=== PATIENT | female | born 1940 | race Caucasian/White ===

== ENCOUNTER 2022-04-09 07:48 | Day surgery (SDC) | payer MEDICARE, SELFPAY ==
[2022-04-09] MEDS: TETRACAINE 0.5% OPHTH 1 DROP EYE-RIGHT ×2 (08:06→08:10)
[2022-04-09] MEDS: KETOROLAC OPHTH 0.5% 1 DROP EYE-RIGHT ×2 (08:07→08:11)
[2022-04-09] MEDS: SODIUM CHLORIDE 0.9 % (FLUSH) 10 ML SYRINGE IVF (08:15)
[2022-04-09 08:18] VITALS: BP 155/79; PULSE 83; RESP 18; TEMP 36.6; O2SAT 99; BMI 34.1
--- NOTE | 2022-04-09 08:22 | SUR.PREOP ---
The eye drops brought by the patient (Ketorolac and Prednisolone) are examined and I have determined they are labeled by the patient's pharmacy for this patient as prescribed by the surgeon. The bottles are intact, recently obtained and appear to be correct.
[2022-04-09] MEDS: TETRACAINE 0.5% OPHTH 2 DROP EYE-RIGHT (09:23)
[2022-04-09] MEDS: BALANCED SALT IRRIG SOLN 15 ML EYE-RIGHT (09:27)
--- NOTE | 2022-04-09 09:32 | W.ANESCHARGE ---
Anesthesia Charges Start Date/Time Anesthesia Start Date: 04/09/22 Anesthesia Start Time: 09:21 Stop Date/Time Anesthesia Stop Date: 04/09/22 Anesthesia Stop Time: 09:55 Summary Emergency: No Extremes of Age: Over 72-CPT 57476
[2022-04-09 09:52] VITALS: BP 171/82; PULSE 64; RESP 18; TEMP 36.5; O2SAT 96
--- NOTE | 2022-04-09 10:08 | SUR.PHASEII ---
The eye drops brought by the patient (Ketorolac and Prednisolone and Ofloxacin) are examined and I have determined they are labeled by the patient's pharmacy for this patient as prescribed by the surgeon. The bottles are intact, recently obtained and appear to be correct.
--- NOTE | 2022-04-09 11:17 | W.PM.OPTPROC ---
Procedure Note Date of procedure: 04/09/22 Will [facility] bill your pro fee for this procedure?: Yes Procedure Description: SURGEON: Donna Salter MD PREOPERATIVE DIAGNOSIS: Nuclear sclerotic cataract, right eye. POSTOPERATIVE DIAGNOSIS: Nuclear sclerotic cataract, right eye. NAME OF OPERATION: Phacoemulsification of cataract with posterior chamber intraocular lens implantation in the right eye. ANESTHESIA: Topical. ESTIMATED BLOOD LOSS: Less than 2 cc. COMPLICATIONS: None. PATHOLOGY SPECIMEN: None. INDICATIONS: See consult note for details. The risks, benefits and alternatives of the procedure were explained to the patient, who elected to proceed and signed informed consent to do so. PROCEDURE: The patient was brought to the pre-holding area where the right eye was identified as the operative eye. I placed my initials above this eye. The patient received eye drops consisting of 0.5% tetracaine, 1% tropicamide, 10% phenylephrine, and 0.5% ketorolac. The patient was then brought to the operating room where the right eye was again identified as the operative eye. The eye was prepped with Betadine and draped in the usual sterile ophthalmic fashion. A #15 super-sharp blade was used to create a paracentesis site. 1% non-preserved intracameral lidocaine was injected into the anterior chamber. Endocoat was injected into the anterior chamber. A 2.4 mm keratome was used to create a three-plane self-sealing incision 1 mm anterior to the temporal limbus. A cystotome was used to create an anterior capsular leaflet. The Utrata forceps were used to extend this to form a continuous curvilinear capsulorrhexis. Hydrodissection was performed. The cataract was removed with phacoemulsification using the oevuew-cev-[id number] technique. The irrigation and aspiration tip was used to remove the remaining cortex. Healon was injected into the capsular bag. An WOODROW ZCB00 intraocular lens of 23.5 diopters was injected into the capsular bag. The irrigation and aspiration tip was used to remove the remaining viscoelastic. Balanced salt solution on a cannula was used to hydrate the wound, and the wound was found to be watertight. The pupil was noted to be round. DISPOSITION: The patient was taken to the recovery room and discharged to home in stable condition. The patient was instructed to call me or go to the emergency department with any sudden change, including dramatic loss of vision, severe pain in the eye or eyebrow region, nausea, or vomiting. The patient will follow up in the clinic tomorrow morning. Surgeon: Donna Salter MD
== END 2022-04-09 10:19 | disposition home or self-care (01) ==
PROVIDERS: PCP Physician Assistant Medical; Visit Provider Ophthalmology
PROC: (CPT 66984; principal; 2022-04-09 08:15)
DX: H25.11 Age-related nuclear cataract, right eye (principal)
CPT/HCPCS: 66984; 00142; 99100; A9270; J2250; J3010; V2632

== ENCOUNTER 2022-04-23 06:09 | Day surgery (SDC) | payer MEDICARE, SELFPAY ==
[2022-04-23] MEDS: KETOROLAC OPHTH 0.5% 1 DROP EYE-LEFT ×2 (06:19→06:40)
[2022-04-23] MEDS: TETRACAINE 0.5% OPHTH 1 DROP EYE-LEFT ×2 (06:19→06:40)
[2022-04-23] MEDS: SODIUM CHLORIDE 0.9 % (FLUSH) 10 ML SYRINGE IVF (06:30)
[2022-04-23 06:39] VITALS: BMI 34.1
[2022-04-23 06:41] VITALS: BP 136/78; PULSE 72; RESP 16; TEMP 36.7; O2SAT 98
--- NOTE | 2022-04-23 06:47 | SUR.PREOP ---
Patient provided home covid negative results to RN.
--- NOTE | 2022-04-23 06:48 | SUR.PREOP ---
The eye drops brought by the patient (Ketorolac, Ofloxacin, and Prednisolone) are examined and I have determined they are labeled by the patient's pharmacy for this patient as prescribed by the surgeon. The bottles are intact, recently obtained and appear to be correct.
[2022-04-23] MEDS: TETRACAINE 0.5% OPHTH 2 DROP EYE-LEFT (07:11)
[2022-04-23] MEDS: BALANCED SALT IRRIG SOLN 15 ML EYE-LEFT (07:16)
--- NOTE | 2022-04-23 07:41 | W.ANESCHARGE ---
Anesthesia Charges Start Date/Time Anesthesia Start Date: 04/23/22 Anesthesia Start Time: 07:08 Stop Date/Time Anesthesia Stop Date: 04/23/22 Anesthesia Stop Time: 07:41 Summary Emergency: No
[2022-04-23 07:51] VITALS: BP 131/74; PULSE 59; RESP 16; TEMP 36.6; O2SAT 97
--- NOTE | 2022-04-23 08:17 | W.ANESCHARGE ---
Anesthesia Charges Start Date/Time Anesthesia Start Date: 04/23/22 Anesthesia Start Time: 07:08 Stop Date/Time Anesthesia Stop Date: 04/23/22 Anesthesia Stop Time: 07:41 Summary Emergency: No Extremes of Age: Over 72-CPT 87150
--- NOTE | 2022-04-23 09:16 | P.OPTPRC_ITS ---
Procedure Note Date of procedure: 04/23/22 Will [facility] bill your pro fee for this procedure?: Yes Procedure Description: SURGEON: Donna Salter MD PREOPERATIVE DIAGNOSIS: Nuclear sclerotic cataract, left eye. POSTOPERATIVE DIAGNOSIS: Nuclear sclerotic cataract, left eye. NAME OF OPERATION: Phacoemulsification of cataract with posterior chamber intraocular lens implantation in the left eye. ANESTHESIA: Topical. ESTIMATED BLOOD LOSS: Less than 2 cc. COMPLICATIONS: None. PATHOLOGY SPECIMEN: None. INDICATIONS: See consult note for details. The risks, benefits and alternatives of the procedure were explained to the patient, who elected to proceed and sign ed informed consent to do so. PROCEDURE: The patient was brought to the pre-holding area where the left eye was identified as the operative eye. I placed my initials above this eye. The patient received eye drops consisting of 0.5% tetracaine, 1% tropicamide, 10% phenylephrine, and 0.5% ketorolac. The patient was then brought to the operating room where the left eye was again identified as the operative eye. The eye was prepped with Betadine and draped in the usual sterile ophthalmic fashion. A #15 super-sharp blade was used to create a paracentesis site. 1% non-preserved intracameral lidocaine was injected into the anterior chamber. Endocoat was injected into the anterior chamber. A 2.4 mm keratome was used to create a three-plane self-sealing incision 1 mm anterior to the temporal limbus. A cystotome was used to create an anterior capsular leaflet. The Utrata forceps were used to extend this to form a continuous curvilinear capsulorrhexis. Hydrodissection was performed. The cataract was removed with phacoemulsification using the zlzexa-mvp-sqsljze technique. The irrigation and aspiration tip was used to remove the remaining cortex. Healon was injected into the capsular bag. An WOODROW ZCB00 intraocular lens of 23.5 diopters was injected into the capsular bag. The irrigation and aspiration tip was used to remove the remaining viscoelastic. Balanced salt solution on a cannula was used to hydrate the wound, and the wound was found to be watertight. The pupil was noted to be round. DISPOSITION: The patient was taken to the recovery room and discharged to home in stable condition. The patient was instructed to call me or go to the emergency department with any sudden change, including dramatic loss of vision, severe pain in the eye or eyebrow region, nausea, or vomiting. The patient will follow up in the clinic tomorrow morning. Surgeon: Donna Salter MD
== END 2022-04-23 08:02 | disposition home or self-care (01) ==
PROVIDERS: PCP Physician Assistant Medical; Visit Provider Ophthalmology
PROC: (CPT 66984; principal; 2022-04-23 06:15)
DX: H25.12 Age-related nuclear cataract, left eye (principal)
CPT/HCPCS: 66984; 00142; 99100; A9270; J2250; J3010; V2632

== ENCOUNTER 2023-02-19 05:49 | Emergency (ER) | payer MEDICARE, SELFPAY ==
--- NOTE | 2023-02-19 05:51 | ED_ITS ---
HPI - General Adult General Time Seen by Provider: 05:51 Date Seen: 02/19/23 Chief complaint: Sore Throat Stated complaint: sore throat Time Seen by Provider: 02/19/23 05:56 Source: patient, RN notes reviewed and old records reviewed Mode of arrival: ambulatory Limitations: no limitations History of Present Illness HPI narrative: 82y/o female with history of hypertension, presents with sore throat, cough, runny nose since yesterday. No chest pain, shortness of breath, fevers, nausea, vomiting. Symptoms started yesterday, she is not taking anything. Called [facility] to make an appointment and was told to come to the emergency department. Related Data Home Medications Medication Instructions Recorded Confirmed alendronate 70 mg tablet 70 mg PO QWEEK 04/08/22 02/19/23 simvastatin 20 mg tablet 20 mg PO HS 04/08/22 02/19/23 triamterene 37.5 1 tab PO DAILY 04/08/22 02/19/23 mg-hydrochlorothiazide 25 mg tablet Previous Rx's Medication Instructions Recorded nirmatrelvir 300 mg (150 mg See Rx Instructions PO .COMPLEX 02/19/23 x2)-ritonavir 100 mg tablet,dose #30 ea pack (Paxlovid) Allergies Allergy/AdvReac Type Severity Reaction Status Date / Time No Known Drug Allergies Allergy Verified 02/19/23 05:56 [facility] Medical History (Updated 02/19/23 @ 07:08 by Darek Ibanez MD) Essential hypertension ?I10 - Essential (primary) hypertension (ICD-10) Hyperlipemia ?E78.5 - Hyperlipidemia, unspecified (ICD-10) Osteopenia ?M85.80 - Other specified disorders of bone density and structure, unspecified site (ICD-10) Surgical History S/P [place]-BSO ?Z90.710 - Acquired absence of both cervix and uterus (ICD-10) ?Z90.722 - Acquired absence of ovaries, 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) ?Z90.79 - Acquired absence of other genital organ(s) (ICD-10) History of appendectomy ?Z90.49 - Acquired absence of other specified parts of digestive tract (ICD- 10) Social History Smoking Status: Never smoker Do you use any of these nicotine containing products: None How often do you have a drink containing alcohol: monthly or less AUDIT-C Alcohol total score: 1 Non-prescribed substance use: denies use Caffeine: Yes Are you using contraception or practicing any form of control: No Exam Narrative: Exam Narrative: General: Well-developed and well-nourished, no acute distress Head: Atraumatic and normocephalic Eyes: Pupils are equal reactive, extraocular motions intact, conjunctiva clear ENT: External nose and ears are normal, posterior pharynx without erythema or exudate Neck: No midline cervical tenderness, full spontaneous range of motion the neck, trachea midline, no adenopathy Heart: Regular rate and rhythm no murmurs or thrills Lungs: Clear to auscultation bilaterally without wheezes or crackles Abdomen: Soft, nontender, nondistended with active bowel sounds Musculoskeletal: No tenderness, deformity, or edema Neurologic: Awake, alert, and oriented x3, no gross focal neurologic deficits, cranial nerves intact as tested Psych: Mood and affect are appropriate Skin: No rashes Const: Vital Signs, click to edit/add: Vital Signs - 24 hr 02/19/23 05:54 Temperature 98.4 F Pulse Rate [Right Pulse Oximeter] 89 Respiratory Rate 18 Blood Pressure [Ri ght Upper Arm] 145/79 H Pulse Oximetry 97 Oxygen Delivery Me thod Room Air Course Course ED Course: Patient seen and examined, prior records reviewed. Patient presents today with upper respiratory symptoms started yesterday, no fever, no chest pain, no breathing difficulty. Posterior pharynx without erythema x-ray, patient's vital is stable. COVID and strep test are ordered. Reevaluation(s) Time of Reevaluation #1: 07:06 Reevaluation #1: COVID positive. Patient is at high risk of progression due to comorbidities and age. Discussed risks and benefits of antivirals and patient will be started on Paxlovid Vital Signs Vital signs: Initial Vital Signs Respiratory Effort Normal, Spontaneous, Non-Labored 02/19/23 05:50 Respiratory Depth Normal 02/19/23 05:50 Respiratory Pattern Normal 02/19/23 05:50 Vital Signs Temperature 98.4 F 02/19/23 05:54 Pulse Rate 89 02/19/23 05:54 Respiratory Rate 18 02/19/23 05:54 Blood Pressure 145/79 H 02/19/23 05:54 Pulse Oximetry 97 02/19/23 05:54 Oxygen Delivery Method Room Air 02/19/23 05:54 Temperature 98.4 F 02/19/23 05:54 Pulse Rate 89 02/19/23 05:54 Respiratory Rate 18 02/19/23 05:54 Blood Pressure 145/79 H 02/19/23 05:54 Pulse Oximetry 97 02/19/23 05:54 Oxygen Delivery Method Room Air 02/19/23 05:54 Medical Decision Making Lab Data Labs: Lab Results 02/19/23 Range/Units 06:05 SARS-CoV-2 (PCR) POSITIVE SARS-CoV-2 A (Negative) Influenza Type A (PCR) Negative PCR FLU A (Negative) Influenza Type B (PCR) Negative PCR FLU B (Negative) Group A Strep DNA NOT DETECTED (Not Detectd) Discharge Plan Discharge Clinical Impression: COVID-19 Patient Disposition: Home, Self-Care Condition: Stable Instructions: COVID-19 (Coronavirus Disease 2019) (ED) Additional Instructions: Stop taking your cholesterol medicine (simvastatin) while your taking the antiviral for COVID Discharge Diet: Regular Prescriptions: New Paxlovid 300 mg (150 mg x 2)-100 mg tablets,dose pack See Rx Instructions .ROUTE .COMPLEX Qty: 30 0RF Rx Instructions: take TWO 150 mg tablets of nirmatrelvir with ONE 100 mg tablet of ritonavir twice daily for 5 days No Action alendronate 70 mg tablet 70 mg PO QWEEK Patient Comments: TAKE 1 TABLET BY MOUTH ONCE A WEEK IN THE MORNING. TAKE ON EMPTY STOMACH WITH FULL GLASS OF WATER. DO NOT LIE DOWN FOR 1 HOUR. simvastatin 20 mg tablet 20 mg PO HS Patient Comments: TAKE 1 TABLET BY MOUTH AT BEDTIME. triamterene-hydrochlorothiazid 37.5-25 mg tablet 1 tab PO DAILY Patient Comments: TAKE 1 TABLET BY MOUTH EVERY MORNING. Follow Up/Referrals: Cristina Eduardo PA-C [Primary Care Provider] - Stand Alone [facility] Info Inst[facility]
[2023-02-19 05:54] VITALS: BP 145/79; PULSE 89; RESP 18; TEMP 36.9; O2SAT 97; BMI 32.1
[2023-02-19 06:41] LABS: Strep A DNA Probe* NOT DETECTED (Not Detectd)
[2023-02-19 06:50] LABS: PCR FLU A Negative PCR FLU A (Negative); PCR FLU B Negative PCR FLU B (Negative)
[2023-02-19 06:56] LABS: SARS PCR* POSITIVE SARS-CoV-2 (Negative)
== END 2023-02-19 07:24 | disposition home or self-care (01) ==
PROVIDERS: Emergency Provider Family Medicine; PCP Physician Assistant Medical
DX: U07.1 COVID-19 (principal)
CPT/HCPCS: 87631; 87651; 99282; 99283

== ENCOUNTER 2024-11-08 05:49 | Emergency (ER) | payer MEDICARE, SELFPAY ==
--- OUTSIDE RECORDS SUMMARY | 2024-11-08 05:51 | XMS_ITS | Clinical Summary ---
Author Organization [facility] Address [address] [place] [id number] Care Team Providers Care Fuel Retrofitting Technician Name Role Phone Cristina Eduardo Primary Care Provider Allergies No known active allergies Medications cholecalciferol (VITAMIN D-3) 2,000 unit capsule Take 2 capsules by mouth once daily. 0 7 Active calcium carbonate (OS-HOMERO 500) 500 mg calcium (1,250 mg) tablet Take 2 Tablets by mouth once daily. Active nystatin powder (Nystop) powderIndications: Fungal infection of skin Apply topically to affected area(s) 3 times daily if needed (infection). 60 g 3 4 Active simvastatin 20 mg tabletIndications: Mixed hyperlipidemia Take 1 Tablet (20 mg) by mouth at bedtime. 90 Tablet 3 5 Active triamterene-hydroc hlorothiazide (37.5-25 mg) 37.5-25 mg tabletIndications: Essential hypertension Take 1 Tablet by mouth once daily in the morning. 90 Tablet 3 5 Active fluticasone (50 mcg per actuation) nasal solution (FLONASE)Indicatio ns:Nasal congestion Inhale 2 Sprays in both nostrils once daily. 16 g 5 Active cephalexin 500 mg capsuleIndications :Cellulitis of skin,Arthralgia, unspecified joint Take 1 Capsule (500 mg) by mouth two times daily for 10 days. 20 Capsule 5 11/15/19 25 Active Active Problems Problem Noted Date Diagnosed Date Routine adult health maintenance 01/08/2017 Overview (01/08/2017): Colonoscopy 01/2017 large sigmoid lipoma, recommend surgical excision Osteopenia 03/24/2012 Mixed hyperlipidemia 02/04/2010 MIld Osteoarthritis of Knee 02/16/2009 Unspecified essential hypertension 06/14/2007 Resolved Problems Problem Noted Date Diagnosed Date Resolved Date Severe obesity (BMI 35.0-39. 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/2012 Overview (08/11/2012): Right hand, ring finger Bunion 08/11/2012 07/01/2023 Overview (08/11/2012): Both feet Vitamin D deficiency 01/23/2009 024 Unspecified asthma(493.90) 06/25/2007 1 04/28/2010 Symptomatic menopausal or fe male climacteric states 06/15/2007 07/01/2023 Other atopic dermatitis and related conditions 06/14/2007 07/01/2023 Encounters Date Type Department Care Team Description 11/08/2024 Nurse Triage [facility] [address] [place] [address] Cristina Eduardo PA Hand Pain/problem (Cellulitis follow-up call - R thumb and L index finger ) 11/07/2024 10:10 AM CDT Office Visit [facility] [address] [place] [address] Cristina Eduardo PA Follow Up (Hand is much better but not gone) 11/07/2024 Travel 11/04/2024 3:00 PM CDT Office Visit [facility] [address] [place] [address] Cristina Eduardo PA Hand Pain/problem (R hand cramps up / started last evening. Happened a year ago also) 11/04/2024 Travel 08/22/2024 Telephone [facility] [address] [place] [address] Cristina Vazquez PA Questions (Mammogram necessary?) from Last 3 Months Immunizations Immunization Administration Dates Next Due AMB INFLUENZA IIV3 (AGE 65+ YRS) PF (Flu Clinic Only) 02/01/2018,12/19/2016 Amb Influenza, Inact (High-d ose) (Flu Clinic Only) 01/02/2014 Amb Influenza, Inactivated A IIV4 (Age 65+ Years) Preserv Free 12/20/2019 COVID-19 vaccine (FarmLink NTech 30mcg/0.3mL) PF, MDV 06/05/2020,05/15/2020 Hepatitis A (Adult) 04/25/2004 Inactivated Polio Vaccine 04/25/2004 Influenza, High-dose Inactivated 01/09/2015,12/06 Influenza, High-dose Quadriv alent Inactivated 01/20/2022,01/17/2021 Influenza, IIV3 (Age 6-35 mos) 02/26/2011,2009 Influenza, IIV3 (Age >=3 years) 01/15/20 13,01/16/2012,02/26/2011,01/28,05/01/2009,01/24/2008,03/24/2007 ,04/02/2006,03/09/2003 Influenza, IIV4 12/26/2015 Influenza, Inactivated IIV3 (Age 65+ Years) Preserv Free 12/24/2018 Meningococcal Vaccine 04/25/2004 Meningococcal Vaccine (Menomune) 04/25/2004 Pneumococcal Poly,23-Valent (Pneumovax) 02/26/2011 Pneumococcal conj 13-Valent (Prevnar 13) 04/12/2015 RSV, Recombinant ADJ Reconst ituted (Arexvy 120MCG/0.5mL) 03/13/2023 Td (Age >=7 Years) 11/24/1995 Tdap 01/24/2008 Typhoid (oral) 04/25/2004 Yellow Fever 04/25/2004 Zoster (Zostavax-ZVL, live) 04/02/2006 Family History Medical History Relation Name Comments Heart Disease Father CHF Hypertension Father Other Father dementia Cancer-breast Mother in her 80's wi th recurrance at 90 Cancer-ovarian No Family History Relation Name Status Comments Father (Age 93) natural ca uses Mother Social History Tobacco Use Types Packs/Day Years Used Date Smoking Tobacco: Never Smokeless Tobacco: Never Tobacco Cessation:Counseling Given: Yes Alcohol Use Standard Drinks/Week Comments No 0 (1 standard drink = 0.6 oz pur e alcohol) moderate PHQ-2 Answer Date Recorded PHQ-2 TOTAL SCORE 1 07/11/2024 Social Connections Answer Date Recorded Do you often feel lonely or isolated from those around you? 0 07/11/2024 Financial Resource Strain Answer Date R ecorded Difficulty of Paying Living Expenses 3 07/11/2024 Difficulty of Paying Living Expenses Not on file 07/11/2024 Food Insecurity Answer Date Recorded Do you worry your food will run out before you are able to buy more? 1 07/11/2024 Transportation Needs Answer Date Record ed Does lack of transportation keep you from medica l appointments? 1 07/11/2024 Does lack of transportation keep you from work, meetings or getting things that you need? 1 07/11/2024 Housing Stability Answer Date Recorded What is your housing situation today? 1 07/11/2024 Utilities Answer Date Recorded Do you have trouble paying f or utilities (for example, heat, electricity, water, phone)? 1 07/11/2024 Comments No Sex and Gender Information Value Date Recorded Sex Assigned at Not on file Legal Sex Female 5:25 AM CLINIC CLERK Gender Identity Not on file Sexual Orientation Not on file Obstetrics History Para Term AB IAB SAB Ectopic Multiple Livin g Live Births 0 0 0 0 0 0 0 0 0 0 Last Filed Vital Signs Vital Sign Reading Time Taken Comments Blood Pressure 129/83 11/07/2024 10:04 AM CDT Pulse 83 11/07/2024 10:04 AM CDT Temperature 36.2 C (97.1 F) 08/02/2024 8:05 AM CDT Respiratory Rate 16 04/23/2015 3:39 PM CLINIC CLERK Oxygen Saturation 95% 11/07/2024 10:04 AM CDT Inhaled Oxygen Concentration - - Weight 91.2 kg (201 lb) 11/04/2024 3:22 PM CDT Height 169.7 cm (5' 6.81) 07/11/2024 8:27 AM CD T Body Mass Index 31.66 07/11/2024 8:27 AM CDT Plan of Treatment Health Maintenance Due Date Last Done Comments Zoster (shingles) series for age 50+ (2 of 3) 05/28/2006 04/02/2006 Tetanus booster 01/23/2018 01/24/2008, 11/24/1995 COVID-19 vaccine series ( season) 2024 12/29/2023, 04/21/2023, 01/20/2022, Additional history exists Influenza Vaccine (#1) 2024 , 12/24/2018, 02/01/2018, Additional history exists BMI (ht and wt on same day) for age 18+ 07/11/2025 07/11/2024, 07/01/2023, 06/30/2022, Additional history exists Depression screening for age 12+ 07/11/2025 07/11/2024, 07/01/2023, 06/30/2022, Additional history exists Medicare Wellness for age 65+ 07/12/2025 07/11/2024, 07/01/2023, 06/30/2022, Additional history exists Pneumococcal series for age 50+ Completed 04/12/2015, 02/26/2011 DEXA/DXA scan for age 65+ Completed 2020, 05/25/2018, 04/22/2013, Additional history exists RSV vaccine for adults or Completed 03/13/2023 Hepatitis B series for 19+ Aged Out N o longer eligible based on patient's age to complete this topic Procedures Procedure Name Priority Date/Time Associated Diagnosis Comments CBC WITH AUTO DIFFERENTIAL Routine 11/04/2024 3:58 PM CDT Cellulitis of skin Arthralgia, unspecified joint SEDIMENTATION RATE Routine 11/04/2024 3: 58 PM CDT Cellulitis of skin Arthralgia, unspecified joint URIC ACID Routine 11/04/2024 3:58 PM CDT Cellulitis of skin Arthralgia, unspecified joint C-REACTIVE PROTEIN Routine 11/04/2024 3: 58 PM CDT Cellulitis of skin Arthralgia, unspecified joint XR DXA BONE DENSITY 2 SITES AXIAL Routine 06/25/2020 8:53 AM CDT Osteopenia of necks of both femurs from Last 3 Months or Most Recently Relevant to Health Maintenance Results * (ABNORMAL) SEDIMENTATION RATE (11/04/2024 3:58 PM CDT) Pathologist [facility] SED RATE BY MODIFIED WESTERGREN 36(H) < OR = 30 mm/h [facility] Blood BLOOD SPECIMEN / Unknown 11/04/2024 3:58 PM CDT 11/04/2024 3:59 PM CDT Cristina MA HEMATOLOGY Final R esult [facility] [address] [place] [address], [place] [phone] [employer] [address] [place] [address] * C-REACTIVE PROTEIN (11/04/2024 3:58 PM CDT) [facility] C-REACTIVE PROTEIN 5.7 <8.0 mg/L [facility] Blood BLOOD SPECIMEN / Unknown 11/04/2024 3:58 PM CDT 11/04/2024 3:59 PM CDT Cristina MA CHEMISTRY Final R esult [facility] [address] [place] [address], [place] [phone] [facility] [address] [place] [address] * (ABNORMAL) CBC AND DIFFERENTIAL (11/04/2024 3:58 PM CDT) [facility] WHITE BLOOD CELL COUNT 7.5 3.8 - 10.8 Thousand/u L [facility] RED BLOOD CELL COUNT 4.37 3.80 - 5.10 Million/uL [facility] HEMOGLOBIN 13.0 11.7 - 15.5 g/dL [facility] HEMATOCRIT 40.1 35.0 - 45.0 % [facility] MCV 91.8 80.0 - 100.0 fL [facility] MCH 29.7 27.0 - 33.0 pg [facility] MCHC 32.4 32.0 - 36.0 g/dL [facility] Comment: For adults, a slight decrease in the calculated MCHC value (in the range of 30 to 32 g/dL) is most likely not clinically significant; however, it should be interpreted with caution in correlation with other red cell parameters and the patient's clinical condition. RDW 12.5 11.0 - 15.0 % [facility] PLATELET COUNT 309 140 - 400 Thousand/u L [facility] MPV 10.4 7.5 - 12.5 fL [facility] ABSOLUTE NEUTROPHILS 4,410 1,500 - 7,800 cells/uL [facility] ABSOLUTE LYMPHOCYTES 1,800 850 - 3,900 cells/uL [facility] ABSOLUTE MONOCYTES 593 200 - 950 cells/uL [facility] ABSOLUTE EOSINOPHILS 615(H) 15 - 500 cells/uL [facility] ABSOLUTE BASOPHILS 83 0 - 200 cells/uL [facility] NEUTROPHILS 58.8 % [facility] LYMPHOCYTES 24.0 % [facility] MONOCYTES 7.9 % [facility] EOSINOPHILS 8.2 % [facility] BASOPHILS 1.1 % [facility] Blood BLOOD SPECIMEN / Unknown 11/04/2024 3:58 PM CDT 11/04/2024 3:59 PM CDT us Cristina MA HEMATOLOGY Final R esult [facility] [address] [place] [address], [facility] [address] [place] [address] * URIC ACID (11/04/2024 3:58 PM CDT) URIC ACID 5.5 2.5 - 7.0 mg/dL [facility] Comment: Therapeutic target for gout patients: <6.0 mg/dL Blood BLOOD SPECIMEN / Unknown 11/04/2024 3:58 PM CDT 11/04/2024 3:59 PM CDT Cristina MA CHEMISTRY Final R esult [facility] [address] [place] [address], [facility] [address] [place] [address] * (ABNORMAL) XR DXA BONE DENSITY 2 SITES AXIAL (06/25/2020 8:53 AM CDT) Anatomical Region Laterality Modality Spine, HIPS, HIPL, HIPR Other Impressions 06/28/2020 9:37 AM CDT Osteopenia. RECOMMENDATIONS: The National Osteoporosis Foundation recommends pharmacologic treatment for patients with T-scores of -2.5 or less, patients with prior history of fragility fractures, or patients with 10-year probability of greater than 3% at hips or greater than 20% of suffering major osteoporotic fractures. Recommend continued optimization of calcium and vitamin D intake through dietary means and/or supplementation and regular exercise. Continue current FOSAMAX (ALENDRONATE) medication treatment. Cristina Eduardo PA-C [facility] 06/28/2020 Narrative 06/28/2020 9:37 AM CDT XR DXA Bone Mineral Density (BMD) EXAM LOCATION: [address] [address] PATIENT NAME: Amelie Parada DATE OF : 1940 EXAM DATE: 06/25/2020 REQUESTING PROVIDER: Cristina Eduardo PA GENDER AT : female HEIGHT: 5' 6.89 (06/22/2020) WEIGHT: 214 lb 3.2 oz (06/22/2020) MENOPAUSAL STATUS: Postmenopausal RACE/ETHNICITY: White RISK FACTORS: FAMILY HISTORY OF HIP FRACTURE (PARENTAL) CURRENT MEDICATION FOR BONE LOSS: FOSAMAX (ALENDRONATE) INDICATION: FOLLOW UP OF EXISTING OSTEOPENIA COMPARISON DATE(S): 2019 DXA scans are compared to prior studies for a patient only when the two (or more) studies were performed on the same scanner. It is not possible to compare data generated on one scanner to data from another because there are not standards in DXA equipment. This applies even if the two scanners are made by the same return to factory clerk. PROCEDURE: Dual-energy x-ray absorptiometry performed with routine technique. Reporting is completed in the form of a T-score. The T-score represents the standard deviation from peak bone mass based on young healthy adult. A Z-score is used for diagnosis in premenopausal women, and for men under the age of 50. FINDINGS: RESULT LUMBAR SPINE L1 - L4 BMD: 1.155 g/cm2 T-Score: -0.2 Z-Score: 0.5 Comparison to most recent scan in 2019: Decrease -0.7%. RESULT FEMORAL NECK Left Total Femoral Neck BMD: 0.877 g/cm2 T-Score: -1.2 Z-Score: 0.2 RESULT TOTAL HIP Bilateral Total Hip BMD: 0.971 g/cm2 T-Score: -0.3 Z-Score: 0.8 Comparison to most recent scan in 2019: Decrease -0.8%. WHO criteria: Normal: T-score at or above -1 SD Osteopenia: T-score between -1.1 and -2.4 SD Osteoporosis: T-score at or below -2.5 SD FRAX RISK CALCULATION (USED FOR OSTEOPENIA ONLY): 10-year probability of major osteoporotic fracture: 24.6%. 10-year probability of hip fracture: 11.1%. Cristina MA DEXA Final R esult from Last 3 Months or Most Recently Relevant to Health Maintenance Insurance [id number] [place] [id number] [facility] MEDICARE ADVANTAGE MR Advance Directives Documents on File Type Date Recorded Patient [place] Man Expl anation POLST 07/11/2024 POLST 03/15/2024 07/20/19 25 Healthcare Directive 09/23/2007 [facility] DIRECTIVE, [facility], 09/23/07 Care Teams Fuel Retrofitting Technician Relationship Specialty Start Date End Date Cristina Eduardo PA [address] [place] [address] PCP - General Physician Robotics Engineer 06/06/19
--- OUTSIDE RECORDS SUMMARY | 2024-11-08 05:51 | XMS_ITS | Clinical Summary ---
Author Organization [facility] Address [address] [place] [address] Care Team Providers Care Evaporator Repairer Name Role Phone Pcp, Pt Dat RESENDEZ Primary Care Provider [phone] Source Comments You are receiving this document as you are listed as the primary care provider,follow-up provider, or the patient has been referred to you for consultation.This is in compliance with the Medicare and[facility] EHR Incentive Program,which states Providers who transition their patient to another setting of careor provider of care or refers their patient to another provider of care shouldprovide summary care record for each transition of care or referral. [facility] Allergies No known active allergies Medications alendronate (FOSAMAX) 70 MG tablet 08/09/2019 Active simvastatin (ZOCOR) 10 MG tablet Take 10 mg by mouth daily at bedtime. Active triamterene (DYRENIUM) 100 MG capsule Take 100 mg by mouth two times a day. Active aspirin EC 81 MG enteric coated tablet Take 81 mg by mouth daily. Active calcium carbonate-vitami n D (OSCALD) 250-125 MG-UNIT tablet Take 1 Tablet by mouth daily. Active Social History Tobacco Use Types Packs/Day Years Used Date Smoking Tobacco: Never Assessed Comments Unknown Sex and Gender Information Value Date Recorded Sex Assigned at Not on file Legal Sex Female 10:43 AM CDT Gender Identity Not on file Sexual Orientation Not on file Last Filed Vital Signs Vital Sign Reading Time Taken Comments Blood Pressure - - Pulse - - Temperature 37.5 C (99.5 F) 09/26/2019 2:39 PM CDT Respiratory Rate - - Oxygen Saturation - - Inhaled Oxygen Concentration - - Weight 101.2 kg (223 lb) 09/26/2019 2:39 PM CDT Height 170.2 cm (5' 7) 09/26/2019 2:39 PM CDT Body Mass Index 34.93 09/26/2019 2:39 PM CDT Plan of Treatment Health Maintenance Due Date Last Done Comments Zoster/Shingles Vaccine (2 of 3) 05/28/2006 04/02/2006 Dexa 10/27/2007 RSV Vaccine (1 - 1-dose 75+ series) 2017 DTaP/Tdap/Td Vaccine (2 - Tdap) 01/23/2018 01/24/2008, 11/24/1995 COVID-19 Vaccine (3 - season) 2023 06/05/2020, 05/15/2020 Medicare Annual Wellness Visit 04/06/2024 Influenza Vaccine (#1) 2024 , 12/24/2018, 02/01/2018, Additional history exists HepA Vaccine Aged Out 04/25/2004 No longer eligi ble based on patient's age to complete this topic IPV (Polio) Vaccine Aged Out 04/25/2004 No longe r eligible based on patient's age to complete this topic MCV4 Vaccine Aged Out 04/25/2004, 04/25/2004 No lo nger eligible based on patient's age to complete this topic Pneumococcal Vaccine 50+ Yrs Completed 04/12/2015, 02/26/2011 HepB Vaccine Aged Out No longer eligi ble based on patient's age to complete this topic Hib Vaccine Aged Out No longer eligi ble based on patient's age to complete this topic Meningococcal B Vaccine Aged Out No l onger eligible based on patient's age to complete this topic Insurance [facility] MEDICARE Care Teams Evaporator Repairer Relationship Specialty Start Date End Date Pcp, [place] [address] PCP - General 09/26/19
[2024-11-08 06:05] VITALS: BP 141/88; PULSE 90; RESP 16; TEMP 36.6; O2SAT 97; BMI 31.1
--- NOTE | 2024-11-08 06:29 | ED.GENADULT ---
HPI - General Adult General Chief complaint: Extremity Pain/Injury, Upper Stated complaint: stiffed hands- both Time Seen by Provider: 11/08/24 06:23 History of Present Illness HPI narrative: Patient c/o right thumb and left 2nd digit pain, redness, and swelling since last night. Patient states she was just on anbx for a possible infection to her right hand last week, but that spot has improved. A triage nurse told her to come to the ER. Please see PCP notes. No home tx [facility]. 84-year-old woman presenting to the emergency department with concern of some swelling redness pain stiffness in her hands beginning last night. Was just treated with a course of cephalexin for some erythema that began around the MCP joint of the 5th finger of the right hand; this area has improved. Notes and images were reviewed. This was actually 4 days ago. Labs are drawn at that time including CBC and uric acid which reportedly were normal though I can not directly see those results. Now is experiencing more tightness and discomfort in her hands and with more localized symptoms of discomfort of the right thumb and left index finger PIP joint Reviewing records from February of last year similar occurrence in the MCP joint of the 3rd finger of the right hand treated with NSAIDs Related Data Home Medications ?Medication ?Instructions ?Recorded ?Confirmed simvastatin 20 mg tablet 20 mg PO HS 04/08/22 09/04/24 triamterene 37.5 1 tab PO DAILY 04/08/22 09/04/24 mg-hydrochlorothiazide 25 mg tablet calcium carbonate (Calcium 500) 500 mg PO QDAY 02/10/24 09/04/24 cholecalciferol (vitamin D3) 50 50 mcg PO QDAY 02/10/24 09/04/24 mcg (2,000 unit) capsule (Vitamin D3) Previous Rx's ?Medication ?Instructions ?Recorded azithromycin 250 mg tablet See Rx Instructions PO .COMPLEX #6 09/04/24 tabs prednisone 10 mg tablet See Rx Instructions PO QDAY #18 09/04/24 tabs celecoxib 200 mg capsule (Celebrex) 200 mg PO DAILY #15 caps 11/08/24 Allergies Allergy/AdvReac Type Severity Reaction Status Date / Time No Known Drug Allergies Allergy Verified 09/04/24 10:07 Review of Systems Status of ROS: Reports: 6 or more systems reviewed and unremarkable except as noted in History and below [facility] Medical History Inflammation of joint of finger of right hand ?M19.041 - Primary osteoarthritis, right hand (ICD-10) Fracture of left tibial plateau ?S82.142A - Displaced bicondylar fracture of left tibia, initial encounter for closed fracture (ICD-10) COVID-19 ?U07.1 - COVID-19 (ICD-10) Essential hypertension ?I10 - Essential (primary) hypertension (ICD-10) Hyperlipemia ?E78.5 - Hyperlipidemia, unspecified (ICD-10) Osteopenia ?M85.80 - Other specified disorders of bone density and structure, unspecified site (ICD-10) Surgical History History of tonsillectomy ?Z90.89 - Acquired absence of other organs (ICD-10) S/P [place]-BSO ?Z90.710 - Acquired absence of both cervix and uterus (ICD-10) ?Z90.722 - Acquired absence of ovaries, 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 NAD. Breathing easily. Skin is warm and dry. There is mild erythema and calor about the interphalangeal joint of the right thumb and then generalized mild/soft swelling of the thumb. The left index finger has similar appearance about the proximal interphalangeal joint. I do not see evidence of trauma otherwise. Const: Vital Signs, click to edit/add: Vital Signs - 24 hr 11/08/24 06:05 Temperature 97.9 F Pulse Rate [Left P ulse Oximeter] 90 Respiratory Rate 16 Blood Pressure [Ri ght Upper Arm] 141/88 H Pulse Oximetry 97 Oxygen Delivery Me thod Room Air Documenting provider has reviewed patient's vital signs: yes Course Vital Signs Vital signs: Initial Vital Signs Temperature 97.9 F 11/08/24 06:05 Temperature Source Temporal Artery Scan 11/08/24 06:05 Pulse Rate 90 11/08/24 06:05 Respiratory Rate 16 11/08/24 06:05 Blood Pressure 141/88 H 11/08/24 06:05 Blood Pressure Mean 105 11/08/24 06:05 Blood Pressure Position Sitting 11/08/24 06:05 Pulse Oximetry 97 11/08/24 06:05 Oxygen Delivery Method Room Air 11/08/24 06:05 Vital Signs Temperature 97.9 F 11/08/24 06:05 Pulse Rate 90 11/08/24 06:05 Respiratory Rate 16 11/08/24 06:05 Blood Pressure 141/88 H 11/08/24 06:05 Pulse Oximetry 97 11/08/24 06:05 Oxygen Delivery Method Room Air 11/08/24 06:05 Temperature 97.9 F 11/08/24 06:05 Pulse Rate 90 11/08/24 06:05 Respiratory Rate 16 11/08/24 06:05 Blood Pressure 141/88 H 11/08/24 06:05 Pulse Oximetry 97 11/08/24 06:05 Oxygen Delivery Method Room Air 11/08/24 06:05 Medical Decision Making MDM Narrative Medical decision making narrative: I think this is more customer engagement representative of arthralgia or arthritis maybe not quite a migrating polyarthralgia, than an infectious process. I would treat with NSAIDs or possibly steroids. Discussed options. See patient discharge plan for further discussion I do not think what we are seeing here today represents an infection; I think this is more related to joint inflammation. You could take 400-600 mg of ibuprofen 3 times a day, maybe with a little food over the next 5 days. Alternative to this might be 375 mg of naproxen twice daily over the same period of time. Another option I am sending into the pharmacy for you called Celebrex (celecoxib). If these things do not work, perhaps a course of prednisone would be beneficial. Be seen for marked increase in pain, swelling, redness, heat and certainly if developing a fever. Medical Records Medical records reviewed: Yes I reviewed the patient's medical records Discharge Plan Discharge Clinical Impression: Arthritis, Arthralgia Patient Disposition: Home, Self-Care Condition: Stable Additional Instructions: I do not think what we are seeing here today represents an infection; I think this is more related to joint inflammation. You could take 400-600 mg of ibuprofen 3 times a day, maybe with a little food over the next 5 days. Alternative to this might be 375 mg of naproxen twice daily over the same period of time. Another option I am sending into the pharmacy for you called Celebrex (celecoxib). If these things do not work, perhaps a course of prednisone would be beneficial. Be seen for marked increase in pain, swelling, redness, heat and certainly if developing a fever. Prescriptions: New celecoxib [Celebrex] 200 mg capsule 200 mg PO DAILY Qty: 15 0RF No Action calcium carbonate [Calcium 500] 500 mg calcium (1,250 mg) tablet,chewable 500 mg PO QDAY cholecalciferol (vitamin D3) [Vitamin D3] 50 mcg (2,000 unit) capsule 50 mcg PO QDAY azithromycin 250 mg tablet See Rx Instructions PO .COMPLEX Qty: 6 0RF Rx Instructions: For 250 mg dose pack: take 500 mg today (day 1), then 250 mg for 4 days (days 2-5) PO prednisone 10 mg tablet See Rx Instructions PO QDAY Qty: 18 0RF Rx Instructions: 30 mg QD for 4D, then 20 mg QD for 3D. Take with food orally every day; simvastatin 20 mg tablet 20 mg PO HS Patient Comments: TAKE 1 TABLET BY MOUTH AT BEDTIME. triamterene-hydrochlorothiazid 37.5-25 mg tablet 1 tab PO DAILY Patient Comments: TAKE 1 TABLET BY MOUTH EVERY MORNING. Follow Up/Referrals: Cristina Eduardo PA-C [Primary Care Provider, Family Practice] [facility] Inst[facility]
== END 2024-11-08 07:42 | disposition home or self-care (01) ==
PROVIDERS: Emergency Provider Family Medicine; PCP Physician Assistant Medical
DX: M13.841 Other specified arthritis, right hand (principal); M13.842 Other specified arthritis, left hand
CPT/HCPCS: 99283; 99284